=== PATIENT | female | born 1960 | race Caucasian/White ===

== ENCOUNTER 2019-01-26 14:32 | Emergency (ER) | payer BC ==
[2019-01-26 14:43] VITALS: BP 103/64
--- NOTE | 2019-01-26 15:04 | UC ---
Laceration HPI - HPI Summary HPI Summary: patient cut her hand on a ceramic pot, superficial laceration to the ant of the pointer finger - History Of Current Complaint Chief Complaint: UCUpperExtremity Stated Complaint: FINGER LACERATION Time Seen by Provider: 01/26/19 14:51 Hx Obtained From: Patient Laceration Location: Finger Mechanism Of Injury: Sharp Trauma Onset/Duration: Sudden Onset, Lasting Hours Pain Intensity: 2 - Allergies/Home Medications Allergies/Adverse Reactions: Allergies Allergy/AdvReac Type Severity Reaction Status Date / Time No Known Allergies Allergy Verified 01/26/19 14:43 Home Medications: Home Medications NK [No Home Medications Reported] 01/26/19 [History Confirmed 01/26/19] PMH/Surg Hx/FS Hx/Imm Hx Previously Healthy: Yes - Surgical History Surgical History: None - Family History Known Family History: Negative: Cardiac Disease, Hypertension - Social History Alcohol Use: Weekly Substance Use Type: None Smoking Status (MU): Never Smoked Tobacco - Immunization History Most Recent Tetanus Shot: unknown Review of Systems All Other Systems Reviewed And Are Negative: Yes Constitutional: Positive: Negative Skin: Positive: Other - laceration Eyes: Positive: Negative ENT: Positive: Negative Respiratory: Positive: Negative Cardiovascular: Positive: Negative Gastrointestinal: Positive: Negative Genitourinary: Positive: Negative Motor: Positive: Negative Neurovascular: Positive: Negative Musculoskeletal: Positive: Negative Neurological: Positive: Negative Psychological: Positive: Negative Is Patient Immunocompromised?: No Physical Exam Triage Information Reviewed: Yes Appearance: Well-Appearing, Well-Nourished, Pain Distress Vital Signs: Initial Vital Signs Temp 98.5 F 01/26/19 14:37 Pulse 65 01/26/19 14:37 Resp 16 01/26/19 14:37 BP 103/64 01/26/19 14:37 Pulse Ox 100 01/26/19 14:37 Vital Signs Reviewed: Yes Eye Exam: Normal ENT Exam: Normal Dental Exam: Normal Neck exam: Normal Respiratory Exam: Normal Respiratory: Positive: Chest non-tender, Lungs clear, Normal breath sounds Cardiovascular Exam: Normal Cardiovascular: Positive: RRR, No Murmur, Pulses Normal Abdominal Exam: Normal Bowel Sounds: Positive: Present Musculoskeletal Exam: Normal Neurological Exam: Normal Psychological Exam: Normal Skin: Positive: Other - 2 cm superfical laceration Laceration Course/Dx - Course/Dx Course Of Treatment: hx obtained, exam performed ,meds reviewed, patient refused tetanus or ABX, wound cleansed, glued and splinted. - Differential Dx - Laceration/Wound Differental Diagnoses: Laceration - Diagnosis Provider Diagnosis: Superficial laceration of hand Discharge - Sign-Out/Discharge Documenting (check all that apply): Patient Departure All imaging exams completed and their final reports reviewed: No Studies - Discharge Plan Condition: Stable Disposition: HOME Patient Education Materials: Laceration (ED), Skin Adhesive Care (ED) Referrals: Gabriela Sandoval PA [Primary Care Provider] - Additional Instructions: 1. Keep the finger clean and dry 2. Use the spint for the next 48 hours 3. Watch for signs of infection, follow up as needed. - Billing Disposition and Condition Condition: STABLE Disposition: Home
[2019-01-26] MEDS ORDERED: Benzoin Compound STICK TOPICAL ONE (15:09)
== END 2019-01-26 15:25 | disposition home or self-care (01) ==
LOC: UCEAST 14:32
DX: S61.211A Laceration without foreign body of left index finger without damage to nail, initial encounter (principal); W26.8XXA Contact with other sharp object(s), not elsewhere classified, initial encounter; Y92.9 Unspecified place or not applicable
CPT/HCPCS: 12001; 99212; G0463